=== PATIENT | female | born 1940 | race Caucasian/White ===

== ENCOUNTER 2018-05-31 14:10 | Emergency (ER) | payer MEDICARE ==
[~2018-05-31] VITALS: Ht 157.5 cm; Wt 92.7 kg
[~2018-05-31 14:10] MED LIST: BAYER LOW81 MG OR; BENICAR40 MG PO; HYDROCHLOROT12.5 MG PO; LEVEMIR SC; LEVEMIR1000 UNITS SC; MULTI VIT OR; NORVASC10 M1 PO; NORVASC5 MG OR; ULTRAM50 M1 PO; ZESTRIL10 M1 OR
[2018-05-31] MEDS ORDERED: LIPITOR20 MG PO (14:22)
[2018-05-31] MEDS ORDERED: METOPROL TAR25 MG PO (14:22)
[2018-05-31] MEDS ORDERED: NOVOLIN N100 UNIT/1 SC (14:22)
[2018-05-31 14:37] LABS: URINE BILIRUBIN - DIPSTICK NEGATIVE (NEGATIVE); URINE BLOOD DIPSTICK MODERATE (NEGATIVE); URINE COLOR YELLOW; URINE GLUCOSE - DIPSTICK >=1000 mg/dL (NEGATIVE); URINE KETONE NEGATIVE (NEGATIVE); URINE LEUK ESTERASE NEGATIVE (NEGATIVE); URINE NITRITE - DIPSTICK NEGATIVE (Negative); URINE PROTEIN - DIPSTICK TRACE mg/dL (NEG-TRACE); URINE UROBILINOGEN - DIPSTICK 0.2 E.U./dL (0.2)
[2018-05-31 14:41] LABS: URINE SQUAMOUS EPITHELIAL CELL FEW EPI/hpf (0-FEW)
[2018-05-31] MEDS ORDERED: PYRIDIUM200 MG PO (14:56)
[2018-05-31] MEDS ORDERED: KEFLEX500 M1 PO (14:56)
[2018-05-31 15:00] VITALS: BP 191/79
== END 2018-05-31 15:01 | disposition home or self-care (01) ==
LOC: ED 14:10
DX: N39.0 Urinary tract infection, site not specified (principal); R30.0 Dysuria; R35.0 Frequency of micturition

== ENCOUNTER 2018-07-06 10:08 | Emergency (ER) | payer MEDICARE ==
[~2018-07-06] VITALS: Ht 157.5 cm; Wt 100.0 kg
[~2018-07-06 10:08] MED LIST changes: +KEFLEX500 M1 PO; +LIPITOR20 MG PO; +METOPROL TAR25 MG PO; +NOVOLIN N100 UNIT/1 SC; +PYRIDIUM200 MG PO
[2018-07-06] MEDS ORDERED: ATORVASTATIN CA40 MG PO (11:11)
[2018-07-06] MEDS ORDERED: ADLT ASA LOW81 MG PO (11:12)
[2018-07-06] MEDS ORDERED: LUTEIN1 CAP PO (11:13)
[2018-07-06] MEDS ORDERED: VITAMIN D50000 UNIT PO (11:13)
[2018-07-06 11:16] LABS: URINE BILIRUBIN - DIPSTICK NEGATIVE (NEGATIVE); URINE BLOOD DIPSTICK MODERATE (NEGATIVE); URINE COLOR YELLOW; URINE GLUCOSE - DIPSTICK NEGATIVE (NEGATIVE); URINE KETONE NEGATIVE (NEGATIVE); URINE NITRITE - DIPSTICK NEGATIVE (Negative); URINE PROTEIN - DIPSTICK TRACE mg/dL (NEG-TRACE); URINE UROBILINOGEN - DIPSTICK 0.2 E.U./dL (0.2)
[2018-07-06 11:17] LABS: URINE LEUK ESTERASE SMALL (NEGATIVE)
[2018-07-06 11:19] LABS: URINE BACTERIA MODERATE hpf; URINE EPITHELIAL CELLS FEW EPI/hpf (0-FEW)
[2018-07-06] MEDS ORDERED: BACTRIM DS1 TAB PO (11:43)
[2018-07-06] MEDS ORDERED: PYRIDIUM200 MG PO (11:43)
[2018-07-06 11:49] VITALS: BP 165/74
== END 2018-07-06 11:49 | disposition home or self-care (01) ==
LOC: ED 10:08
PROVIDERS: Family Medicine
DX: N39.0 Urinary tract infection, site not specified (principal); B96.20 Unspecified Escherichia coli [E. coli] as the cause of diseases classified elsewhere; R30.0 Dysuria; R39.15 Urgency of urination; R35.0 Frequency of micturition; I10 Essential (primary) hypertension

== ENCOUNTER 2019-03-23 13:00 | Emergency (ER) | payer MEDICARE ==
[~2019-03-23] VITALS: Ht 157.5 cm; Wt 96.2 kg
[~2019-03-23 13:00] MED LIST changes: +ADLT ASA LOW81 MG PO; +ATORVASTATIN CA40 MG PO; +BACTRIM DS1 TAB PO; +LUTEIN1 CAP PO; +VITAMIN D50000 UNIT PO
[2019-03-23] MEDS ORDERED: MUPIROCIN21 TOP (14:00)
[2019-03-23] MEDS ORDERED: CEPHALEXIN500 M1 PO (14:00)
[2019-03-23 14:40] VITALS: BP 167/66
== END 2019-03-23 14:39 | disposition home or self-care (01) ==
LOC: ED 13:00
PROC: 0HDRXZZ Extraction of Toe Nail, External Approach (ICD-10-PCS; principal; 2019-03-23)
DX: S91.202A Unspecified open wound of left great toe with damage to nail, initial encounter (principal); E11.9 Type 2 diabetes mellitus without complications; I10 Essential (primary) hypertension; W22.8XXA Striking against or struck by other objects, initial encounter; Y93.89 Activity, other specified; Y92.520 Airport as the place of occurrence of the external cause; Z79.4 Long term (current) use of insulin; Z95.5 Presence of coronary angioplasty implant and graft